=== PATIENT | male | born 1960 | race Two or more races ===

== ENCOUNTER 2021-08-11 10:29 | Emergency (ER) | payer MEDICAID, OTHER ==
[~2021-08-11] VITALS: Ht 193 cm; Wt 117.9 kg
[2021-08-11 10:39] VITALS: BP 172/92
[2021-08-11] MEDS ORDERED: HYDROcodone-ACET 5/325MG TAB PO ONE (11:45)
[2021-08-11] MEDS ORDERED: cefTRIAXone SOD 1,000 MG VL IM ONE (13:30)
== END 2021-08-11 13:54 | disposition home or self-care (01) ==
LOC: ER 10:29
DX: L03.115 Cellulitis of right lower limb (principal); I10 Essential (primary) hypertension
CPT/HCPCS: 73630; 96372; 99283; J0696